=== PATIENT | male | born 1985 | race Caucasian/White ===

== ENCOUNTER 2018-06-24 18:53 | Emergency (ER) | payer SELFPAY ==
[~2018-06-24] VITALS: Ht 182.9 cm; Wt 104.3 kg
== END 2018-06-24 20:37 | disposition home or self-care (01) ==
LOC: ER 18:53
DX: S20.212A Contusion of left front wall of thorax, initial encounter (principal); R03.0 Elevated blood-pressure reading, without diagnosis of hypertension; W01.198A Fall on same level from slipping, tripping and stumbling with subsequent striking against other object, initial encounter; F17.210 Nicotine dependence, cigarettes, uncomplicated
CPT/HCPCS: 71101; 99283-25